=== PATIENT | female | born 1940 | race Caucasian/White ===

== ENCOUNTER 2020-08-11 22:07 | Inpatient (IN) | payer MEDICARE, BC ==
[~2020-08-11] VITALS: Ht 154.9 cm; Wt 56.7 kg
[2020-08-11] MEDS ORDERED: ATOR20 PO (22:29)
[2020-08-11] MEDS ORDERED: PROZAC40 MG PO (22:29)
[2020-08-11] MEDS ORDERED: LEVSOD25 PO (22:30)
[2020-08-11] MEDS ORDERED: METF500 PO (22:31)
[2020-08-11] MEDS ORDERED: THERA-D2000 UNIT PO (22:31)
[2020-08-12 00:06] LABS: BASOPHILS ABSOLUTE AUTO 0.03 K/mm3 (0.00-0.23); BASOPHILS PERCENT AUTO 0 % (0-2); EOSINOPHILS ABSOLUTE AUTO 0.45 K/mm3 (0.00-0.68); EOSINOPHILS PERCENT AUTO 3 % (0-6); Hematocrit 40.3 % (33.0-51.0); IMMATURE GRAN ABSOLUTE AUTO 0.15 K/mm3 (0.00-0.10); IMMATURE GRAN PERCENT AUTO 1 % (0-1); LYMPHOCYTES ABSOLUTE AUTO 1.67 K/mm3 (0.84-5.20); LYMPHOCYTES PERCENT AUTO 12 % (21-46); MONOCYTES ABSOLUTE AUTO 1.33 K/mm3 (0.16-1.47); MONOCYTES PERCENT AUTO 9 % (4-13); Mean Corpuscular HGB 26.8 pg (26.0-34.0); Mean Corpuscular HGB Conc 32.3 g/dL (31.5-36.5); Mean Corpuscular Volume 83 fL (80-100); Mean Platelet Volume 9.8 fL (9.1-12.4); NEUTROPHILS ABSOLUTE AUTO 10.52 K/mm3 (1.96-9.15); NEUTROPHILS PERCENT AUTO 74 % (41-73); Platelet Count 329 K/mm3 (150-400); RDW Coefficient Variation 15.6 % (11.7-14.2); RDW Standard Deviation 47.6 fL (35.1-46.3); Red Blood Cell Count 4.85 M/mm3 (3.80-5.20); White Blood Cell Count 14.15 K/mm3 (4.00-11.30)
[2020-08-12 00:19] LABS: Alanine Aminotransfer (ALT/SGP 99 U/L (12-78); Albumin, Blood 3.7 g/dL (3.4-5.0); Albumin/Globulin Ratio 0.9 (0.8-1.8); Alk Phos 127 U/L (50-136); Anion Gap 10 mmol/L (6-16); Aspartate Aminotrans (AST/SGOT 68 U/L (12-37); Bilirubin, Total 0.8 mg/dL (0.1-1.0); Blood Urea Nitrogen 23 mg/dL (8-24); Bun/Creatinine Ratio 36.4 (12.0-20.0); CO2, Blood 23 mmol/L (21-32); Calcium, Blood 9.6 mg/dL (8.5-10.1); Chloride, Blood 107 mmol/L (98-108); Creatinine, Blood 0.63 mg/dL (0.40-1.00); Globulin, Blood 3.9 g/dL (2.2-4.0); Glomerular Filtration Rate >60 (60-); Glucose, Blood 116 mg/dL (70-99); Potassium, Blood 3.6 mmol/L (3.5-5.5); Sodium, Blood 140 mmol/L (136-145); Total Protein, Blood 7.6 g/dL (6.4-8.2)
--- NOTE | 2020-08-12 06:15 | NUR ---
SHIFT SUMMARY PT ARRIVED TO THE UNIT AROUND AROUND 0400. VITALS WERE STABLE WITH BP 129/76. HR 70-80BPM. O2 SATS >90% ON ROOM AIR. PT REPORTED PAIN OF 2/10 IN GROIN. SKIN TEAR ON R ELBOW FROM FALL. DRESSING CHANGED AND PHOTOS IN CHART. PT REPORTED SIGNIFICANT PAIN WITH DRESSING CHANGE, PRN PAIN MEDICATION GIVEN WITH RELIEF OF PAIN. PT AWAKE IN BED WITH HIP FX PAIN MANAGED. PT REPORTED MINIMAL PAIN. PERIWICK IN ROOM, PT HAS SIGNIFICANT PAIN WITH ANY MOVEMENT.
--- NOTE | 2020-08-12 07:50 | NUR ---
Pt is awake, alert, and denies pain. NO nausea. Asking for water, which she is tolerating. IVF initiated at this time. States she has no pain but would if she moved her right leg. No bruising noted of the right hip. Dressing to right arm, right elbow is clean and dry, intact. Pt states she does not want CPR/INTUBATION. Dr. Vo history and physical also notes, this; however, pt is FULL CODE at this time. Will discuss with attending MD, Dr. Miguel.
--- NOTE | 2020-08-12 10:09 | NUR ---
Call to Dr. Mensah office to request consultation from . Stephanie states that the doctor says to feed the patient and she will come and see her later. Holding lovenox until further word from the orthopedist.
--- NOTE | 2020-08-12 11:11 | NUR ---
ASSISTED ON TO BED MILIAN TO VOID.
--- NOTE | 2020-08-12 13:31 | NUR ---
CARE COORDINATION REFERRAL - ADMIT: 08/12/20 DISCHARGE: 08/12/20 DX: RIGHT HIP FRACTURE CC:KWILCOX RYLEY CALL: PT AT HOME: [phone] RESIDENCE: HOME CAREGIVER: WILLIAM ANDRES, FAMILY MEMBER, DX: ANEMIA, DM-TYPE 2, OSTEOPENIA, DEPRESSION, SEE LIST DME: NONE CCM: NONE HOME HEALTH: NONE SUMMARY: ADMIT: 08/12/20 08/12/20- PER CHART REVIEW WITH DR. FU, PT MAY NOT HAVE SURGERY DUE TO THE TYPE OF FRACTURE PT HAS. DEVELOPER ARCHITECT WAS GOING TO CALL DR. HEREDIA TO SEE IF SHE WOULD WANT TO CONSULT WITH THE PT EITHER IN THE HOSPITAL OR AN OUTPT. DR. HEREDIA ELECTED TO SEE THE PT AN OUTPT. PT WILL NEED TO GO TO SNF PRIOR TO RETURNING HOME. WENT AND SPOKE WITH PT, SHE WOULD LIKE TO GO TO [facility]. HER PLAN AFTER D/C IS TO RETURN BACK HOME WHERE SHE LIVES WITH HER GRANDDAUGHTER AND GRANDSON. BETWEEN HER 2 GRANDCHILDREN, THEY CAN HELP THE PT WITH HER NEEDS. PT DID STATE THAT SHE WOULD NEED A WALKER. WILL ORDER ONE THROUGH [facility] AND HAVE IT DELIVERED TO PT'S ROOM AT THE HOSPITAL. CREATED PACKET AND FAXED FOR REVIEW TO BLACK. KELLY 08/12/20- PER CHART REVIEW, PT AND OT WAS ORDERED, ALONG WITH PROGRAM DIRECTOR CONSULT. DR. HEREDIA' OFFICE WAS CONTACTED FOR CONSULT AND SHE WILL COME OVER THIS AFTERNOON TO DETERMINE IF SURGERY IS NEEDED. KELLY
--- NOTE | 2020-08-12 14:18 | NUR ---
Sitting up in chair, states that she has no pain at this time. Declined any Marana. States that she is getting to go to rehab today.
[2020-08-12] MEDS ORDERED: HYDR1TAB94 PO (14:19)
[2020-08-12 15:09] LABS: Influenza A, PCR NEGATIVE (NEGATIVE); Influenza B, PCR NEGATIVE (NEGATIVE); Resp Syncytial Virus, PCR NEGATIVE (NEGATIVE); SARS-Cov-2 (COVID-19) PCR, MMC NEGATIVE (NEGATIVE)
--- NOTE | 2020-08-12 15:40 | NUR ---
Call to Shoaib to give telephone report. Approximated slat pickler time for transport to [facility] is 1630.
--- NOTE | 2020-08-12 15:42 | NUR ---
Pt's granddaughter is here to see the patient, and also spoke with Dulce Maria, material planner for [facility] [employer]. Pt was medicated for pain with Surprise as ordered, and also given Miralax for constipation. She had a medium sized, very hard brown BM today.
--- NOTE | 2020-08-12 16:57 | NUR ---
1635: Wheelchair transport arrived, electromatic typist assisted pt to wheelchair and she was taken for transport to [facility]. Grandson took pt's purse and bag of belongings, to take to [facility] himself.
== END 2020-08-12 16:35 | DRG 536 ==
LOC: ER 22:07 → PCU 08-12 02:12 → ER 08-12 02:15 → MEDS 08-12 02:15 → PCU 08-12 04:08
PROVIDERS: Emergency Medicine; Internal Medicine; ADMIT Internal Medicine
DX: S32.511A Fracture of superior rim of right pubis, initial encounter for closed fracture (principal); S70.01XA Contusion of right hip, initial encounter; S51.011A Laceration without foreign body of right elbow, initial encounter; Z20.822 Contact with and (suspected) exposure to COVID-19; E78.5 Hyperlipidemia, unspecified; E03.9 Hypothyroidism, unspecified; E11.9 Type 2 diabetes mellitus without complications; F32.9 Major depressive disorder, single episode, unspecified; W19.XXXA Unspecified fall, initial encounter; Y92.481 Parking lot as the place of occurrence of the external cause; Z79.84 Long term (current) use of oral hypoglycemic drugs
CPT/HCPCS: 0241U; 72192; 73502; 80053; 85025; 93005; 93010; 96374; 96375; 97162; 97166; 97530; 97535; 99285-25; A9270; J1885; J3010; J7030

== ENCOUNTER 2021-06-19 13:08 | Emergency (ER) | payer MEDICARE ==
[~2021-06-19] VITALS: Ht 154.9 cm; Wt 59.0 kg
[~2021-06-19 13:08] MED LIST: ATOR20 PO; HYDR1TAB94 PO; LEVSOD25 PO; METF500 PO; PROZAC40 MG PO; THERA-D2000 UNIT PO
[2021-06-19 14:21] LABS: BASOPHILS ABSOLUTE AUTO 0.04 K/mm3 (0.00-0.23); BASOPHILS PERCENT AUTO 0 % (0-2); EOSINOPHILS ABSOLUTE AUTO 0.08 K/mm3 (0.00-0.68); EOSINOPHILS PERCENT AUTO 1 % (0-6); IMMATURE GRAN ABSOLUTE AUTO 0.04 K/mm3 (0.00-0.10); IMMATURE GRAN PERCENT AUTO 0 % (0-1); LYMPHOCYTES PERCENT AUTO 8 % (21-46); MONOCYTES ABSOLUTE AUTO 0.75 K/mm3 (0.16-1.47); MONOCYTES PERCENT AUTO 8 % (4-13); Mean Corpuscular HGB 29.6 pg (26.0-34.0); Mean Corpuscular HGB Conc 33.3 g/dL (31.5-36.5); Mean Corpuscular Volume 89 fL (80-100); Mean Platelet Volume 9.4 fL (9.1-12.4); NEUTROPHILS ABSOLUTE AUTO 8.06 K/mm3 (1.96-9.15); NEUTROPHILS PERCENT AUTO 83 % (41-73); Platelet Count 367 K/mm3 (150-400); RDW Coefficient Variation 13.3 % (11.7-14.2); RDW Standard Deviation 43.8 fL (35.1-46.3); Red Blood Cell Count 4.73 M/mm3 (3.80-5.20); White Blood Cell Count 9.77 K/mm3 (4.00-11.30)
[2021-06-19 14:27] LABS: Alanine Aminotransfer (ALT/SGP 167 U/L (12-78); Albumin, Blood 3.6 g/dL (3.4-5.0); Alk Phos 78 U/L (50-136); Anion Gap 10 mmol/L (6-16); Aspartate Aminotrans (AST/SGOT 131 U/L (12-37); Bilirubin, Total 1.5 mg/dL (0.1-1.0); Blood Urea Nitrogen 21 mg/dL (8-24); Bun/Creatinine Ratio 42.8 (12.0-20.0); CO2, Blood 23 mmol/L (21-32); Calcium, Blood 9.9 mg/dL (8.5-10.1); Chloride, Blood 107 mmol/L (98-108); Creatinine, Blood 0.49 mg/dL (0.40-1.00); Globulin, Blood 3.5 g/dL (2.2-4.0); Glomerular Filtration Rate >60 (60-); Glucose, Blood 129 mg/dL (70-99); Potassium, Blood 3.3 mmol/L (3.5-5.5); Sodium, Blood 140 mmol/L (136-145); Total Protein, Blood 7.1 g/dL (6.4-8.2)
[2021-06-19 16:36] LABS: Source, Urine Clean Catch
[2021-06-19 16:43] LABS: Blood, Urine 3+ (Neg); Glucose Qualitative, Urine Neg (Neg); Ketones, Urine 1+ (Neg); Leukocyte Esterase, Urine 1+ (Neg); Nitrite, Urine Pos (Neg); Protein, Urine 2+ (Neg); Urobilinogen, Urine 1+ (Normal)
[2021-06-19 16:59] LABS: Appearance, Urine Hazy (Clear); Color, Urine Amber (P-Yellow)
[2021-06-19 17:01] LABS: Bacteria Many /hpf; Bilirubin, Urine 1+ (Neg); Squamous Epithelial Cells Few /hpf (Few)
[2021-06-19] MEDS ORDERED: CEFD300 PO (19:10)
== END 2021-06-19 19:51 | disposition home or self-care (01) ==
LOC: ER 13:08
PROVIDERS: Physician Assistant
DX: R94.5 Abnormal results of liver function studies (principal); Z86.59 Personal history of other mental and behavioral disorders; Z79.899 Other long term (current) drug therapy; Z79.84 Long term (current) use of oral hypoglycemic drugs
CPT/HCPCS: 36415; 70450; 71045; 76705; 80053; 81001; 84484; 85025; 87077; 87086; 87186; 93005; 93010; 96374; 99285-25; J0696

== ENCOUNTER 2021-08-05 12:53 | Emergency (ER) | payer MEDICARE ==
[~2021-08-05] VITALS: Ht 152.4 cm; Wt 53.1 kg
[~2021-08-05 12:53] MED LIST changes: +CEFD300 PO
[2021-08-05 13:22] LABS: BASOPHILS ABSOLUTE AUTO 0.03 K/mm3 (0.00-0.23); BASOPHILS PERCENT AUTO 0 % (0-2); EOSINOPHILS ABSOLUTE AUTO 0.09 K/mm3 (0.00-0.68); EOSINOPHILS PERCENT AUTO 1 % (0-6); Hematocrit 44.1 % (33.0-51.0); Hemoglobin 14.2 g/dL (11.5-16.0); IMMATURE GRAN ABSOLUTE AUTO 0.02 K/mm3 (0.00-0.10); IMMATURE GRAN PERCENT AUTO 0 % (0-1); LYMPHOCYTES ABSOLUTE AUTO 0.89 K/mm3 (0.84-5.20); LYMPHOCYTES PERCENT AUTO 13 % (21-46); MONOCYTES ABSOLUTE AUTO 0.67 K/mm3 (0.16-1.47); MONOCYTES PERCENT AUTO 10 % (4-13); Mean Corpuscular HGB 29.3 pg (26.0-34.0); Mean Corpuscular HGB Conc 32.2 g/dL (31.5-36.5); Mean Corpuscular Volume 91 fL (80-100); Mean Platelet Volume 9.2 fL (9.1-12.4); NEUTROPHILS ABSOLUTE AUTO 5.23 K/mm3 (1.96-9.15); NEUTROPHILS PERCENT AUTO 76 % (41-73); Platelet Count 321 K/mm3 (150-400); RDW Coefficient Variation 13.5 % (11.7-14.2); RDW Standard Deviation 45.7 fL (35.1-46.3); Red Blood Cell Count 4.84 M/mm3 (3.80-5.20); White Blood Cell Count 6.93 K/mm3 (4.00-11.30)
[2021-08-05 13:51] LABS: Alanine Aminotransfer (ALT/SGP 115 U/L (12-78); Albumin, Blood 3.8 g/dL (3.4-5.0); Alk Phos 92 U/L (50-136); Anion Gap 8 mmol/L (6-16); Aspartate Aminotrans (AST/SGOT 88 U/L (12-37); Bilirubin, Total 1.5 mg/dL (0.1-1.0); Blood Urea Nitrogen 19 mg/dL (8-24); Bun/Creatinine Ratio 34.7 (12.0-20.0); CO2, Blood 25 mmol/L (21-32); Calcium, Blood 9.9 mg/dL (8.5-10.1); Chloride, Blood 108 mmol/L (98-108); Creatinine, Blood 0.55 mg/dL (0.40-1.00); Globulin, Blood 3.9 g/dL (2.2-4.0); Glomerular Filtration Rate >60 (60-); Glucose, Blood 135 mg/dL (70-99); Potassium, Blood 4.2 mmol/L (3.5-5.5); Sodium, Blood 141 mmol/L (136-145); Total Protein, Blood 7.7 g/dL (6.4-8.2)
[2021-08-05 14:31] LABS: Source, Urine Clean Catch
[2021-08-05 14:37] LABS: Bilirubin, Urine Neg (Neg); Blood, Urine 2+ (Neg); Glucose Qualitative, Urine Neg (Neg); Ketones, Urine 1+ (Neg); Leukocyte Esterase, Urine Neg (Neg); Nitrite, Urine Neg (Neg); Protein, Urine 2+ (Neg); Urobilinogen, Urine NORM (Normal)
[2021-08-05 14:58] LABS: Appearance, Urine Hazy (Clear); Color, Urine Pale Yellow (P-Yellow)
[2021-08-05 14:59] LABS: Bacteria Few /hpf; Squamous Epithelial Cells Rare /hpf (Few); White Blood Cells, Urine 0-2 /hpf (0-5)
[2021-08-05 15:00] LABS: Mucus Light (0-Heavy)
[2021-08-05 15:15] LABS: U Amphetamine Screen Not Detected; U Barbituate Screen Not Detected; U Benzodiazapine Screen Not Detected; U Buprenorphine Screen Not Detected; U Cannabinoids Screen DETECTED; U Cocaine Screen Not Detected; U Methadone Screen Not Detected; U Methamphetamine Screen Not Detected; U Opiates Screen Not Detected; U Oxycodone Screen Not Detected; U Phencyclidine Screen Not Detected; U Propoxyphene Screen Not Detected
== END 2021-08-05 14:25 | disposition left against medical advice (07) ==
LOC: ER 12:53
PROVIDERS: Emergency Medicine
DX: Z53.21 Procedure and treatment not carried out due to patient leaving prior to being seen by health care provider (principal)
CPT/HCPCS: 80053; 81001; 85025

== ENCOUNTER → 2023-04-15 | Outpatient (CLI) | payer MEDICARE | LOC: LAB SHORT 16:36 → LAB 16:36 | DX: N39.0 Urinary tract infection, site not specified (principal) | CPT/HCPCS: 87077; 87086; 87186 ==

== ENCOUNTER → 2023-04-21 | Outpatient (CLI) | payer MEDICARE ==
[2023-04-21 18:03] LABS: BASOPHILS ABSOLUTE AUTO 0.04 K/mm3 (0.00-0.23); BASOPHILS PERCENT AUTO 1 % (0-2); EOSINOPHILS ABSOLUTE AUTO 0.14 K/mm3 (0.00-0.68); EOSINOPHILS PERCENT AUTO 2 % (0-6); Hematocrit 43.3 % (33.0-51.0); Hemoglobin 14.4 g/dL (11.5-16.0); IMMATURE GRAN ABSOLUTE AUTO 0.03 K/mm3 (0.00-0.10); IMMATURE GRAN PERCENT AUTO 0 % (0-1); LYMPHOCYTES ABSOLUTE AUTO 1.49 K/mm3 (0.84-5.20); LYMPHOCYTES PERCENT AUTO 20 % (21-46); MONOCYTES ABSOLUTE AUTO 0.75 K/mm3 (0.16-1.47); MONOCYTES PERCENT AUTO 10 % (4-13); Mean Corpuscular HGB 30.7 pg (26.0-34.0); Mean Corpuscular HGB Conc 33.3 g/dL (31.5-36.5); Mean Corpuscular Volume 92 fL (80-100); NEUTROPHILS ABSOLUTE AUTO 4.88 K/mm3 (1.96-9.15); NEUTROPHILS PERCENT AUTO 67 % (41-73); Platelet Count 310 K/mm3 (150-400); RDW Coefficient Variation 13.5 % (11.7-14.2); RDW Standard Deviation 45.3 fL (35.1-46.3); Red Blood Cell Count 4.69 M/mm3 (3.80-5.20); White Blood Cell Count 7.33 K/mm3 (4.00-11.30)
[2023-04-21 18:08] LABS: Bun/Creatinine Ratio 22.4 (12.0-20.0); Calcium, Blood 9.9 mg/dL (8.5-10.1); Creatinine, Blood 0.76 mg/dL (0.40-1.00)
== END ==
LOC: LAB 17:58 → LAB SHORT 17:58
PROVIDERS: Physician Assistant Surgical
DX: R53.81 Other malaise (principal)
CPT/HCPCS: 80048; 85025

== ENCOUNTER → 2024-03-13 | Outpatient (CLI) | payer MEDICARE | LOC: LAB SHORT 14:51 → LAB 14:51 | DX: N39.0 Urinary tract infection, site not specified (principal) | CPT/HCPCS: 87077; 87086; 87186 ==

== ENCOUNTER → 2024-04-07 | Outpatient (CLI) | payer MEDICARE | LOC: LAB SHORT 16:17 → LAB 16:17 | DX: N39.0 Urinary tract infection, site not specified (principal) | CPT/HCPCS: 87077; 87086; 87186 ==